=== PATIENT | female | born 1965 | race Two or more races ===

== ENCOUNTER 2023-03-08 12:19 | Emergency (ER) | payer OTHER ==
[~2023-03-08] VITALS: Ht 160 cm; Wt 63.0 kg
[2023-03-08] MEDS ORDERED: SYNTHROID75 MCG (12:49)
[2023-03-08] MEDS ORDERED: SEROQUEL25 MG (12:50)
[2023-03-08] MEDS ORDERED: ATIVAN0.5 M1 (12:50)
[2023-03-08] MEDS ORDERED: VISTARIL25 MG (12:50)
[2023-03-08] MEDS ORDERED: PROZAC40 MG (12:50)
[2023-03-08] MEDS ORDERED: TRAZODONE HCL50 MG (12:51)
[2023-03-08] MEDS ORDERED: RESTORIL15 M1 (12:52)
[2023-03-08 16:43] LABS: PH,URINE 5.5 (5.0-8.0); URINE APPEARANCE Clear; URINE BILIRRUBIN Negative (NEGATIVE); URINE BLOOD Negative; URINE COLOR Yellow; URINE GLUCOSE Negative (NEGATIVE); URINE LEUKOCYTE Small; URINE NITRATE Negative; URINE PROTEIN Negative (NEGATIVE); URINE UROBILINOGEN 0.2 E.U./dl
[2023-03-08 16:44] LABS: HEMATOCRIT 41.8 % (36.0-45.00); HEMOGLOBIN 13.9 g/dL (12.0-15.00); MEAN CELL VOLUME 94.4 fL (80.00-100.00); MEAN CORPUSCULAR HEMOGLOBIN 31.3 pg (27.00-32.0); MEAN CORPUSCULAR HGB CONC 33.2 g/dl (32.0-36.0); PLATELET COUNT 266 K/uL (150-450); RED BLOOD COUNT 4.43 M/uL (4.00-6.00); RED CELL DISTRIBUTION WIDTH 13.8 % (11.5-14.5)
[2023-03-08 16:47] LABS: URINE BACTERIA 36.5 uL (0.0-1933); URINE EPITHELIAL CELLS 13.1 uL (0.0-38.8); URINE WBC 59.1 uL (0.0-23.2)
[2023-03-08 17:21] LABS: CALCIUM 9.2 mg/dL (8.5-10.1); CREATININE SERUM 0.75 mg/dL (0.55-1.02); GFR 79.37; POTASSIUM 3.71 mEq/L (3.5-5.1)
[2023-03-08] MEDS ORDERED: MOTRIN IB200 MG PO (19:37)
[2023-03-08] MEDS ORDERED: TAMS0.4C PO (19:37)
[2023-03-08] MEDS ORDERED: CEFDINIR300 MG PO (19:37)
== END 2023-03-08 22:46 | disposition home or self-care (01) ==
LOC: ER 12:20
PROVIDERS: Nurse Practitioner Family
DX: N20.1 Calculus of ureter (principal); J45.909 Unspecified asthma, uncomplicated; E03.9 Hypothyroidism, unspecified; M19.90 Unspecified osteoarthritis, unspecified site; M79.7 Fibromyalgia

== ENCOUNTER 2023-12-02 05:25 | Emergency (ER) | payer OTHER ==
[~2023-12-02] VITALS: Ht 160 cm; Wt 63.5 kg
[~2023-12-02 05:25] MED LIST: ATIVAN0.5 M1; CEFDINIR300 MG PO; MOTRIN IB200 MG PO; PROZAC40 MG; RESTORIL15 M1; SEROQUEL25 MG; SYNTHROID75 MCG; TAMS0.4C PO; TRAZODONE HCL50 MG; VISTARIL25 MG
[2023-12-02] MEDS ORDERED: KETOROLAC TROMETHAMINE 30 MG VIAL IV STA (05:47)
[2023-12-02] MEDS ORDERED: MEPERIDINE HCL/PF 50 MG/ML VIAL IM STA (05:47)
[2023-12-02] MEDS ORDERED: PROMETHAZINE HCL 50 MG/ML AMPUL IM STA (05:48)
[2023-12-02] MEDS ORDERED: HYOSCYAMINE SULFATE 0.125 MG TAB.SUBL SL STA (05:48)
[2023-12-02] MEDS ORDERED: KETOROLAC TROMETHAMINE 30 MG VIAL ONE (06:05)
[2023-12-02] MEDS ORDERED: PROMETHAZINE HCL 50 MG/ML AMPUL IM ONE (06:05)
[2023-12-02] MEDS ORDERED: HYOSCYAMINE SULFATE 0.125 MG TAB.SUBL ONE (06:05)
[2023-12-02 06:44] LABS: CALCIUM 9.3 mg/dL (8.5-10.1); CREATININE SERUM 0.76 mg/dL (0.55-1.02); GFR 77.89; POTASSIUM 3.85 mEq/L (3.5-5.1)
[2023-12-02 07:03] LABS: HEMATOCRIT 40.8 % (36.0-45.00); HEMOGLOBIN 13.7 g/dL (12.0-15.00); MEAN CELL VOLUME 93.7 fL (80.00-100.00); MEAN CORPUSCULAR HEMOGLOBIN 31.5 pg (27.00-32.0); MEAN CORPUSCULAR HGB CONC 33.6 g/dl (32.0-36.0); PLATELET COUNT 244 K/uL (150-450); RED BLOOD COUNT 4.36 M/uL (4.00-6.00); RED CELL DISTRIBUTION WIDTH 13.4 % (11.5-14.5)
[2023-12-02 07:52] LABS: URINE APPEARANCE Cloudy; URINE BILIRRUBIN Negative (NEGATIVE); URINE BLOOD Negative; URINE COLOR Dark Yellow; URINE GLUCOSE Negative (NEGATIVE); URINE KETONE Trace (NEGATIVE); URINE LEUKOCYTE Trace; URINE NITRATE Negative; URINE PROTEIN Trace (NEGATIVE)
[2023-12-02 07:55] LABS: URINE BACTERIA 49.1 uL (0.0-1933); URINE RBC 42.7 uL (0.0-20.8)
[2023-12-02 08:08] LABS: URINE CAST 0.45 uL (0.0-1.40)
== END 2023-12-02 10:47 | disposition home or self-care (01) ==
LOC: ER 05:27
DX: N20.1 Calculus of ureter (principal); R10.9 Unspecified abdominal pain
CPT/HCPCS: 36415; 74176; 96365; 96372; 99284; J1885; J2550; J3490

== ENCOUNTER 2023-12-06 22:09 | Emergency (ER) | payer OTHER ==
[~2023-12-06] VITALS: Ht 160 cm; Wt 63.5 kg
[2023-12-06] MEDS ORDERED: MORPHINE SULFATE 4 MG/ML VIAL IV ONE (23:00)
[2023-12-06] MEDS ORDERED: 0.9 % SODIUM CHLORIDE 1,000 ML IV ONE (23:00)
[2023-12-06 23:39] LABS: HEMATOCRIT 37.5 % (36.0-45.00); HEMOGLOBIN 13.1 g/dL (12.0-15.00); MEAN CELL VOLUME 90.3 fL (80.00-100.00); MEAN CORPUSCULAR HEMOGLOBIN 31.6 pg (27.00-32.0); PLATELET COUNT 261 K/uL (150-450); RED BLOOD COUNT 4.15 M/uL (4.00-6.00); RED CELL DISTRIBUTION WIDTH 13.1 % (11.5-14.5)
[2023-12-06 23:54] LABS: BILIRUBIN TOTAL 0.83 mg/dL (0.3-1.2); CALCIUM 9.8 mg/dL (8.5-10.1); CREATININE SERUM 1.02 mg/dL (0.55-1.02); GFR 55.47; GLOBULINA 3.6 G/DL (2.4-3.5); POTASSIUM 3.46 mEq/L (3.5-5.1); TOTAL PROTEIN 7.6 gm/dL (6.4-8.2)
[2023-12-07 00:22] LABS: URINE APPEARANCE Clear; URINE BILIRRUBIN Negative (NEGATIVE); URINE BLOOD Moderate; URINE COLOR Dark Yellow; URINE GLUCOSE Negative (NEGATIVE); URINE KETONE Negative (NEGATIVE); URINE LEUKOCYTE Negative; URINE NITRATE Negative; URINE PROTEIN Trace (NEGATIVE)
[2023-12-07 00:25] LABS: URINE BACTERIA 103.3 uL (0.0-1933); URINE EPITHELIAL CELLS 19.4 uL (0.0-38.8); URINE RBC 171.6 uL (0.0-20.8)
[2023-12-07 00:49] LABS: URINE CAST 0.45 uL (0.0-1.40)
[2023-12-07] MEDS ORDERED: KETOROLAC TROMETHAMINE 30 MG VIAL ONE (01:58)
[2023-12-07] MEDS ORDERED: KETOROLAC TROMETHAMINE 30 MG VIAL IV ONE (02:00)
[2023-12-07] MEDS ORDERED: KETO10TA2 PO (02:08)
[2023-12-07] MEDS ORDERED: BACTRIM DS TAB1 EACH PO (02:08)
== END 2023-12-07 02:29 | disposition home or self-care (01) ==
LOC: ER 22:10
PROVIDERS: General Practice
DX: N20.1 Calculus of ureter (principal); N20.0 Calculus of kidney; K76.0 Fatty (change of) liver, not elsewhere classified
CPT/HCPCS: 36415; 74176; 96365; 96366; 99284; J1885; J2270; J7030

== ENCOUNTER 2024-01-15 09:05 | Outpatient (CLI) | payer OTHER ==
[~2024-01-15 09:05] MED LIST changes: +BACTRIM DS TAB1 EACH PO; +KETO10TA2 PO
== END 2024-01-15 09:12 | disposition home or self-care (01) ==
LOC: TOM 09:05
PROVIDERS: ATTEND Urology
DX: N20.1 Calculus of ureter (principal)